=== PATIENT | female | born 1985 | race Caucasian/White ===

== ENCOUNTER 2016-10-28 19:00 | Emergency (ER) | payer MEDICAID, OTHER ==
[2016-10-28 19:23] VITALS: BP 130/69
--- NOTE | 2016-10-28 19:47 | ERNOTE ---
Time Seen by Provider: 10/28/16 19:37 Stated Complaint: SOB, DIZZINESS, FEVER Presenting Symptoms:: cough, fever Immunizations: IMMUNIZATION HX Immunizations Up to Date Yes History of Influenza Vaccine No Hx Pneumococcal Vaccination No Allergies/Adverse Reactions: Allergies doxycycline Allergy (Verified 10/28/16 19:24) latex Allergy (Verified 10/28/16 19:24) Penicillins Allergy (Verified 10/28/16 19:24) Sulfa (Sulfonamide Antibiotics) Allergy (Verified 10/28/16 19:24) Home Medications: HOME MEDICATIONS Clindamycin HCl [Cleocin HCl] 300 mg PO TID #30 capsule 10/28/16 [Last Taken Unknown] Synthroid 10/28/16 [Last Taken Unknown] - History of Present Ilness Narrative: Pt began to be short of breath 3 days ago, with some cough. Today she began to run a fever and worsen overall Timing: getting worse Severity: moderate Frequency/Possible Cause: Reports: other - feels like when she had pneumonia as a teenager Modifying Factors - Improves: Reports: nothing Modifying Factors - Worsens: Reports: activity, coughing Review of Systems - Review of Systems Constitutional: Present: See HPI EYE: Present: no symptoms reported ENT: Present: sore throat Respiratory: Present: See HPI, shortness of breath, cough Cardiology: Present: no symptoms reported Gastrointestinal/Abdominal: Present: nausea, vomiting - since fever began Genitourinary: Present: no symptoms reported Musculoskeletal: Present: no symptoms reported Skin: Present: no symptoms reported Neurological: Present: dizziness/light-headedness - upon movement then stops Endocrine: Present: no symptoms reported Hematologic/Lymphatic: Present: no symptoms reported Psych: Present: no symptoms reported - Patient's Past Medical History Patient History - Medical: Hypothyroidism Patient History - Cardiac/Respiratory: No pertinent hx Patient History - Cancer: No Hx of Cancer Patient History - Surgical Procedures: , D & C, Tubal Ligation Patient History - Other: None LMP (females 10-50): 3 weeks - Social History Living Situations: home Psych History: No pertinent hx Smoking Status: Current every day smoker - Immunizations Immunizations Up to Date: Yes Hx Pneumococcal Vaccination: No History of Influenza Vaccine: No Physical Exam - Physical Exam General Appearance: Present: wd/wn, alert, mild distress Eye Exam: Normal inspection: bilateral Ears, Nose, Throat: Present: nasal congestion, pharyngeal erythema Neck: Present: normal inspection, nontender Respiratory: Present: no respiratory distress, no accessory muscle use Cardiovascular/Chest: Present: regular rate, rhythm, no murmur Gastrointestinal/Abdominal: Present: normal bowel sounds, nontender, soft Back Exam: Present: normal inspection, normal range of motion Extremity Exam: Present: normal inspection Neurological Exam: Present: alert, oriented, normal mood/affect, no motor/ sensory deficits Skin Exam: Present: normal color, warm/dry Lymphatic Exam: Present: no adenopathy ED Progress - Results and Orders Patient's Lab Results:: I have reviewed the patient's lab results. Results and Orders: Laboratory Tests 10/28/16 10/28/16 19:27 19:27 Influenza Type A Ag Negative Influenza Type B Ag Negative Group A Strep Rapid Positive H - Vital Signs Patient's Vital Signs:: I have reviewed the patient's vital signs. Vital Signs: Vital Signs 10/28/16 19:19 Temperature 38.8 C H Pulse Rate 120 H Respiratory 16 Rate Blood Pressure 130/69 O2 Sat by Pulse 99 Oximetry - Progress/Reassessment Chief Complaint: Upper Respiratory Symptoms Departure - Departure Clinical Impression: Strep pharyngitis Disposition: Home self-care Condition: Good Instructions: Strep Throat, [id number] Prescriptions: Clindamycin HCl [Cleocin HCl] 300 mg PO TID #30 capsule
[2016-10-28] MEDS ORDERED: CLINDAMYCIN HCL 150 MG CAPSULE PO ONE (20:11)
--- OUTSIDE RECORDS SUMMARY | 2016-10-28 20:11 | XMS REPORT | Continuity of Care Document ---
:1985 Author Organization [facility] [place] [address] Care Team Providers Name Role Phone Unavailable Primary Care Provider Unavailable Source Comments This disclosure is being made pursuant to the [employer] program and maynot contain all information available regarding this patient.[facility] Active Allergies and Adverse Reactions Not on File Current Medications Be aware that medications may not be up to date as of this document. Alwaysverify current medications with the patient. Not on file Active Problems Not on file Social History Tobacco Use Types Packs/Day Years Used Date Never Assessed Plan of Care Health Maintenance Due Date Last Done Comments Retired-Pertussis Vaccine Adult 02/14/2004 Retired-Tetanus Vaccine Adult 02/14/2004 Pap Smear 2006 Retired-INFLUENZA VACCINE 04/30/2015 Results from Last 3 Months Not on file
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
[2016-10-28] MEDS ORDERED: CLINDAMYCIN HCL 150 MG CAPSULE ONE (20:14)
== END 2016-10-28 20:19 | disposition home or self-care (01) ==
LOC: ER 19:00
DX: J02.0 Streptococcal pharyngitis (principal)

== ENCOUNTER 2016-12-17 23:39 | Emergency (ER) | payer OTHER ==
[2016-12-17 23:39] VITALS: BP 130/69
--- NOTE | 2016-12-18 00:45 | ERNOTE ---
Integumentary HPI - General Presenting Symptoms: other - Swelling in the perineal area Time Seen by Provider: 12/18/16 00:45 Source: patient Exam Limitations: no limitations - Immun/Allergies/Home Medications Immunizations: IMMUNIZATION HX Immunizations Up to Date Yes History of Influenza Vaccine No Hx Pneumococcal Vaccination No Allergies/Adverse Reactions: Allergies Allergy/AdvReac Type Severity Reaction Status Date / Time doxycycline Allergy Verified 12/17/16 23:58 latex Allergy Verified 12/17/16 23:58 Penicillins Allergy Verified 12/17/16 23:58 Sulfa (Sulfonamide Allergy Verified 12/17/16 23:58 Antibiotics) Home Medications: HOME MEDICATIONS Synthroid 10/28/16 [Last Taken Unknown] Nabumetone [Relafen] 500 mg PO BID #20 tab 12/18/16 [Last Taken Unknown] - Pain Pain Score: 5 - History of Present Illness Narrative: Pt went to the bathroom and noticed her left labia was swollen and tender Location: Reports: genitalia Quality: Reports: painful Severity: moderate Exposure: Reports: no cause identified Modifying Factors - (Improves): Reports: nothing Modifying Factors - (Worsens): Reports: other - sitting Review of Systems - Review of Systems Constitutional: Absent: recent illness, fever EYE: Present: no symptoms reported ENT: Present: no symptoms reported Respiratory: Present: no symptoms reported Cardiology: Present: no symptoms reported Gastrointestinal/Abdominal: Present: no symptoms reported Genitourinary: Present: See HPI Musculoskeletal: Present: no symptoms reported Skin: Present: See HPI Neurological: Present: no symptoms reported Endocrine: Present: no symptoms reported Hematologic/Lymphatic: Present: no symptoms reported Psych: Present: no symptoms reported - Patient's Past Medical History Patient History - Medical: Hypothyroidism Patient History - Cardiac/Respiratory: No pertinent hx Patient History - Cancer: No Hx of Cancer Patient History - Surgical Procedures: , D & C, Tubal Ligation Patient History - Other: None LMP (females 10-50): this week - Social History Living Situations: home Psych History: Hx of Anxiety, Hx of Depression Smoking Status: Current every day smoker Have you smoked in the past 12 months: Yes Do you dip or chew tobacco: No Alcohol Use: occasionally - Immunizations Immunizations Up to Date: Yes Hx Pneumococcal Vaccination: No History of Influenza Vaccine: No Physical Exam - Physical Exam General Appearance: Present: wd/wn, alert, no apparent distress Respiratory: Present: no respiratory distress Gastrointestinal/Abdominal: Present: nontender, nondistended Extremity Exam: Present: normal inspection, normal range of motion, no edema Neurological Exam: Present: alert, oriented, normal mood/affect Skin Exam: Present: normal color, warm/dry Lymphatic Exam: Present: no adenopathy Pelvic Exam: Present: other - Swollen left bartholin gland. No erythema or warmth , mild to moderately tender . Absent: discharge ED Progress - Vital Signs Vital Signs: Vital Signs 12/17/16 23:39 Temperature 36.7 C Pulse Rate 86 Respiratory 22 H Rate Blood Pressure 130/69 O2 Sat by Pulse 98 Oximetry - Progress/Reassessment Chief Complaint: Abscess Departure Clinical Impression: Bartholin gland cyst - Departure Disposition: Home Follow Up Needed Condition: Good Instructions: Heat Therapy, Bartholin Cyst or Abscess, [id number] Additional Instructions: follow up with a baton teacher for surgical treatment if not improving Prescriptions: Nabumetone [Relafen] 500 mg PO BID #20 tab
[2016-12-18] MEDS ORDERED: KETOROLAC TROMETHAMINE 60 MG/2 ML VIAL IM ONE ×2 (01:21→01:22)
--- OUTSIDE RECORDS SUMMARY | 2016-12-18 01:31 | XMS REPORT | Continuity of Care Document ---
:1985 Author Organization [facility] ([facility]) Address [address] [place] [address] Phone [phone] Care Team Providers Name Role Phone Eleazar Poe Primary Care Provider [phone] Source Comments This disclosure is being made pursuant to the Care Everywhere program, applicable federal and state laws, and may not contain all informaitonavailable regarding this patient.[facility] ([facility]) Active Allergies and Adverse Reactions Allergen Noted [...]
--- OUTSIDE RECORDS SUMMARY | 2016-12-18 01:31 | XMS REPORT | Continuity of Care Document ---
:1985 Author Organization [facility] [place] [address] Care Team Providers Name Role Phone Unavailable Primary Care Provider Unavailable Source Comments This disclosure is being made pursuant to the [employer] program and maynot contain all information available regarding this patient.[facility] [facility] Active Allergies and Adverse Reactions Not on [...]
== END 2016-12-18 01:32 | disposition home or self-care (01) ==
LOC: ER 23:39
DX: N75.0 Cyst of Bartholin's gland (principal); Z72.0 Tobacco use

== ENCOUNTER 2017-03-28 17:58 | Emergency (ER) | payer OTHER ==
--- OUTSIDE RECORDS SUMMARY | 2017-03-28 19:16 | XMS REPORT | Clinical Summary ---
:1985 Author Organization [facility] [place] [address] Care Team Providers Name Role Phone Unavailable Primary Care Provider Unavailable Source Comments This disclosure is being made pursuant to the [employer] program and maynot contain all information available regarding this patient.[facility] Allergies Not on File Current Medications Be aware that medications may not be up to date as of this document. Alwaysverify current medications with the patient. Not on file Active Problems Not on file Social History Tobacco Use Types Packs/Day Years Used Date Never Assessed Sex Assigned at Date Recorded Not on file Last Filed Vital Signs Not on file Plan of Treatment Health Maintenance Due Date Last Done Comments Tetanus/Pertussis (1 - Tdap) 02/14/2004 Pap Smear 2006 INFLUENZA IMMUNIZATION (#1) 2016 Results Not on filefrom Last 3 Months
[2017-03-28] MEDS ORDERED: METOCLOPRAMIDE HCL 5 MG/ML VIAL IV ONE (19:20)
[2017-03-28] MEDS ORDERED: KETOROLAC TROMETHAMINE 30 MG/ML VIAL IV ONE (19:20)
[2017-03-28] MEDS ORDERED: NORMAL SALINE 1,000 ML IV ONE (19:20)
[2017-03-28] MEDS ORDERED: diphenhydrAMINE HCL 50 MG/ML VIAL IV ONE (19:20)
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
[2017-03-28] MEDS ORDERED: METOCLOPRAMIDE HCL 5 MG/ML VIAL ONE (20:07)
[2017-03-28] MEDS ORDERED: KETOROLAC TROMETHAMINE 30 MG/ML VIAL ONE (20:07)
[2017-03-28] MEDS ORDERED: diphenhydrAMINE HCL 50 MG/ML VIAL ONE (20:07)
[2017-03-28 22:04] VITALS: BP 109/77
== END 2017-03-28 20:45 | disposition home or self-care (01) ==
LOC: ER 17:58
DX: G43.909 Migraine, unspecified, not intractable, without status migrainosus (principal); F17.200 Nicotine dependence, unspecified, uncomplicated